=== PATIENT | female | born 1950 | race Caucasian/White ===

== ENCOUNTER → 2022-01-10 | Outpatient (CLI) | payer MEDICARE ==
--- NOTE | 2022-01-10 16:55 | BD ---
EXAMINATION TYPE: Axial Bone Density DATE OF EXAM: 01/10/2022 COMPARISON: NONE CLINICAL HISTORY: Height: 62 Weight: 194.8 FRAX RISK QUESTIONS: Alcohol (3 or more units per day): no Family History (Parent hip fracture): no Glucocorticoids (More than 3mos): no (Ex: prednisone, prednisolone, methylprednisolone, dexamethasone, and hydrocortisone). History of Fracture in Adulthood: yes Secondary Osteoporosis: 1. Type 1 Diabetes: no 2. Hyperthyroidism: no 3. Menopause before 45: no 4. Malnutrition: no 5. Chronic liver disease: no Rheumatoid Arthritis: no Current Tobacco Use: no RISK FACTORS HISTORY OF: Surgery to Spine/Hip(right/left)/Wrist (right/left): no Family History of Osteoporosis: no Active: no Diet low in dairy products/other sources of calcium: yes Postmenopausal woman: yes Lost more than 2 inches in height since high school: no MEDICATIONS: Additional History: EXAM MEASUREMENTS: Bone mineral densitometry was performed using the [facility]. Bone mineral density as measured about the Lumbar spine is: ----- L1-L4(G/cm2): 1.066 T Score Values are as follows: ----- L2: 0.2 ----- L3: -1.2 ----- L4: -2.0 ----- L1-L4: -1.0 Bone mineral density : baseline Bone mineral density about the R hip (g/cm2): 0.819 Bone mineral density about the L hip (g/cm2): 0.873 T Score values are as follows: -----R Neck: -0.6 -----L Neck: -1.2 -----R Total: -1.6 -----L Total: -1.2 Bone mineral density : baseline IMPRESSION: Osteopenia (T Score between -2.5 and -1). There is slightly increased risk of fracture and the patient may be considered for treatment. Re-Screen 2-5 years. NOTE: T-SCORE=SD OF THE YOUNG ADULT MEAN.
--- NOTE | 2022-01-11 13:57 | MM ---
Reason for exam: screening (asymptomatic). Last mammogram was performed 7 years and 6 months ago. History: Patient is postmenopausal. Taking unspecified hormones. Physical Findings: A clinical breast exam by your physician is recommended on an annual basis and results should be correlated with mammographic findings. MG 3D Screening Mammo W/Cad Bilateral CC and MLO view(s) were taken. Prior study comparison: June 28, 2014, left breast MG work up mamm w CAD LT. June 24, 2014, bilateral MG screening mammo w CAD. There are scattered fibroglandular densities. There is no discrete abnormality. No significant changes when compared with prior studies. ASSESSMENT: Negative, BI-RAD 1 RECOMMENDATION: Routine screening mammogram of both breasts in 1 year.
== END | disposition home or self-care (01) ==
LOC: RADBDWWP 13:09
PROVIDERS: ATTEND Family Medicine
DX: Z12.31 Encounter for screening mammogram for malignant neoplasm of breast (principal); M85.89 Other specified disorders of bone density and structure, multiple sites; Z78.0 Asymptomatic menopausal state
CPT/HCPCS: 77063; 77067; 77080

== ENCOUNTER → 2024-01-19 | Outpatient (CLI) | payer MEDICARE ==
--- NOTE | 2024-01-20 14:51 | MM ---
Reason for Exam: Screening (asymptomatic). Last screening mammogram was performed 12 month(s) ago. Patient History: Menarche at age 11. First Full-Term at age 22. Postmenopausal. Currently using Unspecified Hormone. Risk Values: Suzan 5 year model risk: 1.6%. NCI Lifetime model risk: 3.7%. Prior Study Comparison: 06/28/2014 Left Diagnostic Mammogram, [facility]. 01/10/2022 Bilateral Screening Mammogram, [facility]. 01/16/2023 Bilateral MG 3D screening mammo w/cad, [facility]. Tissue Density: The breasts are almost entirely fatty. Findings: Analyzed By CAD. There is no suspicious group of microcalcifications or new suspicious mass. Overall Assessment: Negative, BI-RAD 1 Management: Screening Mammogram of both breasts in [address] [facility] will attempt to contact patient to return for supplemental views and ultrasound if indicated. Patient should continue monthly self-breast exams. A clinical breast exam by your physician is recommended on an annual basis. This exam should not preclude additional follow-up of suspicious palpable abnormalities. Note on Suzan scores and lifetime risk: 1. A Suzan score greater than 3% is considered moderate risk. If this is the case, consider specialist referral to assess eligibility for a risk reducing agent. 2. If overall lifetime risk for the development of breast cancer is 20% or higher, the patient may qualify for future screening with alternating mammogram and breast MRI. Electronically signed and approved by: Stu Evans DO
== END | disposition home or self-care (01) ==
LOC: RADMAMWWP 07:59
PROVIDERS: ATTEND Family Medicine
DX: Z12.31 Encounter for screening mammogram for malignant neoplasm of breast (principal); Z78.0 Asymptomatic menopausal state
CPT/HCPCS: 77067

== ENCOUNTER → 2025-01-25 | Outpatient (CLI) | payer MEDICARE ==
--- NOTE | 2025-01-25 07:36 | MM ---
Reason for Exam: Screening (asymptomatic). Last screening mammogram was performed 12 month(s) ago. Patient History: Menarche at age 11. First Full-Term at age 22. Postmenopausal. Currently using Unspecified Hormone. Risk Values: Suzan 5 year model risk: 1.6%. NCI Lifetime model risk: 3.4%. Prior Study Comparison: 01/10/2022 Bilateral Screening Mammogram, [facility]. 01/16/2023 Bilateral MG 3D screening mammo w/cad, [facility]. 01/19/2024 Bilateral MG screening mammo w CAD, [facility]. Tissue Density: There are scattered areas of fibroglandular density. Findings: Analyzed By CAD. There are a few small benign-appearing round calcifications bilaterally redemonstrated. There is no suspicious group of microcalcifications or new suspicious mass in either breast. Overall Assessment: Benign, BI-RAD 2 Management: Screening Mammogram of both breasts in 1 year. . Patient should continue monthly self-breast exams. A clinical breast exam by your physician is recommended on an annual basis. This exam should not preclude additional follow-up of suspicious palpable abnormalities. Note on Suzan scores and lifetime risk: 1. A Suzan score greater than 3% is considered moderate risk. If this is the case, consider specialist referral to assess eligibility for a risk reducing agent. 2. If overall lifetime risk for the development of breast cancer is 20% or higher, the patient may qualify for future screening with alternating mammogram and breast MRI. [facility], , 01/25/2025 7:33 AM. Electronically signed and approved by: Antonio Mondragon M.D.
--- NOTE | 2025-01-25 08:03 | BD ---
EXAMINATION TYPE: Axial Bone Density DATE OF EXAM: 01/25/2025 CLINICAL HISTORY: 74 years old Female. ICD-10 CODE: Z78.0 POST STEPHANE , Additional History: Height: 61.25 Weight: 164 FRAX RISK QUESTIONS: History of Fracture in Adulthood: yes Secondary Osteoporosis: RISK FACTORS HISTORY OF: MEDICATIONS: EXAM MEASUREMENTS: Bone mineral densitometry was performed using the [employer]. Bone mineral density as measured about the Lumbar spine is: ----- L1-L4(G/cm2): 1.178 T Score Values are as follows: ----- L1: -0.7 ----- L2: 0.4 ----- L3: 0.9 ----- L4: -0.8 ----- L1-L4: 0.0 Z Score Values are as follows: ----- L1: 0.8 ----- L2: 1.8 ----- L3: 2.4 ----- L4: 0.6 ----- L1-L4: 1.4 Bone mineral density has: Increased 10.5% since study of: 01-10-22 Bone mineral density about the R hip (g/cm2): 0.829 Bone mineral density about the L hip (g/cm2): 0.879 T Score values are as follows: -----R Neck: -1.5 -----L Neck: -1.3 -----R Total: -1.4 -----L Total: -1.0 Z Score values are as follows: -----R Neck: 0.2 -----L Neck: 0.4 -----R Total: 0.1 -----L Total: 0.5 Bone mineral density has: Increased 2.3% since study of: 01-10-22 FRAX%s: The graph provided illustrates a 11% chance for a major osteoporotic fx and a 2.2% chance for the hips probability for fx in 10 years time. IMPRESSION: Osteopenia (T Score between -2.5 and -1) remains present. There is slightly increased risk of fracture and the patient may be considered for treatment. Re-Screen 2-5 years. NOTE: T-SCORE=SD OF THE YOUNG ADULT MEAN. [facility], , 01/25/2025 8:00 AM
== END | disposition home or self-care (01) ==
LOC: RADMAMWWP 07:03
PROVIDERS: ATTEND Family Medicine
DX: Z12.31 Encounter for screening mammogram for malignant neoplasm of breast (principal); R92.323 Mammographic fibroglandular density, bilateral breasts; R92.1 Mammographic calcification found on diagnostic imaging of breast; M85.89 Other specified disorders of bone density and structure, multiple sites; Z78.0 Asymptomatic menopausal state
CPT/HCPCS: 77063; 77067; 77080